=== PATIENT | male | born 1945 | race Caucasian/White ===

== ENCOUNTER 2024-01-26 19:32 | Observation (INO) ==
--- NOTE | 2024-01-26 19:49 | Emergency Department Note ---
Impression & Plan Fracture of head of humerus DC ED Provider Note HPI: History obtained from patient. The patient is a 78-year-old gentleman who presents the emergency department via EMS after a fall. Patient states that he was playing with the dog when it ran in front of him on a leash and he fell onto his right shoulder. Patient states he felt a "crack" in his right scapula when he fell. Patient states he also has some pain in the area of his right lower ribs. On arrival here to the ED the patient is alert, he is saturating well on room air. Patient denies hitting his head, denies any loss of consciousness. Patient states he is not currently on any blood thinning medications. Patient does have motor and sensory function intact distally in the right hand on arrival. Patient presents with stable blood pressure at 145/98. Heart rate is within normal limits. ROS: - Per HPI Differential Diagnosis: Shoulder fracture, shoulder dislocation, humerus fracture, scapular fracture, rib fracture, pneumothorax, hemothorax, amongst other potential pathologies. *Outpatient medications and allergy history reviewed. PE: General: Alert HEENT: Normocephalic, trachea midline Eyes: Extraocular eye movement is intact, no scleral erythema Pulmonary: Clear to auscultation bilaterally, no wheezing Cardio: Regular rate and rhythm GI: Abdomen is soft to palpation : No suprapubic tenderness MSK: Limited range of motion at the right shoulder secondary to pain, otherwise no evidence of trauma or malformation of the extremities, no edema Skin: No evidence of rash Neuro: Alert, no focal deficits, motor and sensory function is intact distally in the right hand Psychiatric: Cooperative INDEPENDENT INTERPRETATIONS: potline monitor: (As interpreted by myself): - An order was placed for continuous cardiac monitoring - Patient was noted to be in sinus rhythm with a rate of 85 Interventions provided in ED: -IV morphine, IV Zofran Medical Decision Making: IV was established and lab work obtained, patient was placed on conveyor monitor. Patient was ordered IV pain medication, patient was taken to CT imaging for CT imaging of the chest given right-sided rib pain and pain around the area of his scapula. CT imaging of the chest does not show any evidence of rib fractures, there is no pneumothorax or hemothorax, scattered pulmonary nodules are noted and also the patient is noted to have comminuted fracture of the right humeral head and humeral neck. Lab work otherwise is largely unremarkable. I discussed these findings with the patient, he states he is already aware of the pulmonary nodules and states that he has had this worked up and was told that it is not a malignant finding. In regards to the patient's fracture of the humeral head and neck, I did discuss these findings with on-call orthopedics, Dr. Hand. He states the patient does not require emergent surgery, the patient can be discharged and follow-up with a shoulder specialist and he does recommend Dr. Yu for [facility] orthopedics. I did discuss this with the patient, he requested that I call the orthopedic service at [facility] and see if they would be able to accept him for transfer for arrangement of surgery. I did comply with this request and I discussed the patient's presentation with the on-call orthopedist at [facility], Dr. Sam, he recommends the patient be discharged and does not feel that this is urgent and does not feel that the patient needs to be admitted at their facility for arrangement of surgery. He recommends pain control and outpatient follow-up with Dr. Parry as well as the patient's request. Following my discussions with both orthopedic surgeons who both recommended the patient be discharged and follow-up as an outpatient for arrangement of surgery, the patient states he is in agreement for discharge, he did request an additional dose of IV pain medication prior to discharge and this was ordered. Patient will be given a Percocet home pack to use as needed tonight for pain, he was written a prescription for Percocet and this was sent to his pharmacy in the [place] area. He was given information for [facility] orthopedics for follow-up, Dr. Yu, and he will call tomorrow to arrange for a follow-up appointment and arrangement of surgery. He states he will also attempt to contact [facility] in the [facility] to see what his options are and to see which group can see him earlier. At this time I do feel the patient is stable for outpatient management. Patient and his at the bedside are in agreement to this plan and the patient was discharged in stable condition. Consultants/Discussions held with other healthcare providers: -Orthopedics, Dr. Hand -Orthopedics at [facility], Dr. Sam Disposition discussion held by myself with: -Patient and at the bedside Discharge prescriptions: -Percocet Diagnosis: 1. Humeral head fracture, acute, comminuted, closed 2. Mechanical fall, acute 3. Pulmonary lesions on CT imaging, chronic Disposition: DC Advised outpatient follow up that was discussed with the patient: -Return to the ED immediately with any new or worsening symptoms -Follow up with a PCP in 2-3 Days -Orthopedics as discussed, patient will call tomorrow morning to schedule an appointment for follow-up Bert Medrano DO Emergency Medicine Past Med/Surg History Problem List (Updated 01/26/24 @ 21:33 by Bert Medrano DO) Fracture of head of humerus (Acute) Social History Feels Safe at Home: Yes Allergies Allergies Allergy/AdvReac Type Severity Reaction Status Date / Time No Known Allergies Allergy Verified 01/26/24 21:34 Home Meds Home Medications Medication Instructions Recorded Confirmed metoprolol succinate 25 mg 25 mg PO QAM 01/26/24 01/26/24 tablet,extended release 24 hr nifedipine 30 mg tablet,extended 30 mg PO QAM 01/26/24 01/26/24 release 24 hr zolpidem 10 mg tablet 10 mg PO HS PRN Sleep 01/26/24 01/26/24 Previous Rx's Medication Instructions Recorded oxycodone-acetaminophen 5 mg-325 1 tab PO Q6H PRN pain #20 tabs 01/26/24 mg tablet (Percocet) Results & Data (ED) Vital Signs Vital Signs - 24 hr 01/26/24 19:39 01/26/24 19:40 01/26/24 19:40 Temperature Temperature Source Pulse Rate 80 Pulse Rate from SpO2 Sensor Respiratory Rate Respiratory Effort / Characteristics Respiratory Depth Respiratory Pattern Blood Pressure 145/98 H 145/98 H Blood Pressure Mean 129 129 Pulse Oximetry Oxygen Delivery Method Sepsis Recent Fever Within 48 Hours Sepsis New/Unexplained Change in Mental Status Sepsis Action Taken by Nursing 01/26/24 19:42 01/26/24 19:42 01/26/24 20:24 Temperature 36.7 C Temperature Source Oral Pulse Rate 80 81 79 Pulse Rate from SpO2 Sensor 80 Respiratory Rate 18 16 10 L Respiratory Effort / Characteristics Non-Labored Spontaneous Respiratory Depth Normal Respiratory Pattern Regular Blood Pressure 145/98 H Blood Pressure Mean 113 Pulse Oximetry 92 96 Oxygen Delivery Method Room Air Sepsis Recent Fever Within 48 Hours No Sepsis New/Unexplained Change in Mental Status No Sepsis Action Taken by Nursing No Action Required 01/26/24 20:27 01/26/24 20:30 01/26/24 20:30 Temperature Temperature Source Pulse Rate 81 Pulse Rate from SpO2 Sensor 81 Respiratory Rate 13 Respiratory Effort / Characteristics Respiratory Depth Respiratory Pattern Blood Pressure 153/93 H 153/93 H Blood Pressure Mean 111 111 Pulse Oximetry 96 Oxygen Delivery Method Sepsis Recent Fever Within 48 Hours Sepsis New/Unexplained Change in Mental Status Sepsis Action Taken by Nursing 01/26/24 21:00 01/26/24 21:00 01/26/24 21:00 Temperature Temperature Source Pulse Rate Pulse Rate from SpO2 Sensor Respiratory Rate Respiratory Effort / Characteristics Respiratory Depth Respiratory Pattern Blood Pressure 153/89 H 153/89 H 153/89 H Blood Pressure Mean 102 102 102 Pulse Oximetry Oxygen Delivery Method Sepsis Recent Fever Within 48 Hours Sepsis New/Unexplained Change in Mental Status Sepsis Action Taken by Nursing 01/26/24 21:00 01/26/24 21:21 01/26/24 21:30 Temperature Temperature Source Pulse Rate 90 95 H Pulse Rate from SpO2 Sensor 90 95 H Respiratory Rate 14 10 L Respiratory Effort / Characteristics Respiratory Depth Respiratory Pattern Blood Pressure 143/88 H Blood Pressure Mean 96 Pulse Oximetry 98 99 Oxygen Delivery Method Sepsis Recent Fever Within 48 Hours Sepsis New/Unexplained Change in Mental Status Sepsis Action Taken by Nursing 01/26/24 21:30 01/26/24 21:30 01/26/24 22:40 Temperature Temperature Source Pulse Rate 99 H Pulse Rate from SpO2 Sensor Respiratory Rate 18 Respiratory Effort / Characteristics Respiratory Depth Respiratory Pattern Blood Pressure 143/88 H 143/88 H 158/96 H Blood Pressure Mean 96 96 Pulse Oximetry 96 Oxygen Delivery Method Room Air Sepsis Recent Fever Within 48 Hours Sepsis New/Unexplained Change in Mental Status Sepsis Action Taken by Nursing Laboratory Data 01/26/24 19:53 01/26/24 19:53 Lab Results 01/26/24 Range/Units 19:53 WBC 6.77 (4.8-10.8) K/ul RBC 5.28 (4.70-6.10) M/uL Hgb 15.9 (14.0-18.0) g/dl Hct 46.8 (42.0-52.0) % MCV 88.6 (80.0-100.0) fL MCH 30.1 (25.0-34.0) pg MCHC 34.0 (32.0-36.0) g/dL RDW Std Deviation 41.1 (36.4-46.3) fL RDW Coeff of Milagros 12.6 (11.5-14.5) % Plt Count 216 (130-400) K/uL MPV 8.9 L (9.4-12.4) fL Immature Gran % (Auto) 0.1 % Neut % (Auto) 52.3 % Lymph % (Auto) 35.9 % Mcdonald % (Auto) 8.1 % Eos % (Auto) 2.7 % Baso % (Auto) 0.9 % Neut # (Auto) 3.54 (1.40-6.50) K/uL Lymph # (Auto) 2.43 (1.20-3.40) K/uL Mcdonald # (Auto) 0.55 (0.11-0.59) K/uL Eos # (Auto) 0.18 (0.00-0.50) K/uL Baso # (Auto) 0.06 (0.00-0.20) K/uL Immature Gran # (Auto) 0.01 (0.01-0.20) K/uL Sodium 141 (136-145) mmol/L Potassium 3.4 L (3.5-5.1) mmol/L Chloride 107 (98-107) mmol/L Carbon Dioxide 26 (21-32) mmol/L Anion Gap 8 (3-11) BUN 15 (6-23) mg/dl Creatinine 1.20 (0.6-1.4) mg/dl Est Cr Clr Drug Dosing 60.0 ml/min Est GFR ( Amer) 66.3 ml/min Est GFR (Non-Af Amer) 57.2 ml/min BUN/Creatinine Ratio 12.5 (10-20) Glucose 130 H (70-99(Fasting)) mg/dl Calcium 9.2 (8.6-10.3) mg/dl Total Bilirubin 0.4 (0.2-1.0) mg/dl AST 21 (13-39) U/L ALT 22 (7-52) U/L Alkaline Phosphatase 59 (34-104) U/L Total Protein 7.0 (6.0-8.3) gm/dl Albumin 4.0 (3.4-5.0) gm/dl Globulin 3.0 (2.5-4.0) gm/dl Albumin/Globulin Ratio 1.3 (0.9-2) Administered Medications Discontinued Medications Sodium Chloride (Nss) 500 mls @ 999 mls/hr IV .Q31M SUZI Stop: 01/26/24 20:30 Last Infusion: 01/26/24 21:16 Dose: Infused Documented By: Admin: 01/26/24 20:16 Dose: 999 mls/hr Documented By: EDWARD Morphine Sulfate (Morphine Sulfate 4 Mg/Ml 1 Ml Carp\\Vial) 4 mg IV NOW STA Stop: 01/26/24 19:48 Last Admin: 01/26/24 21:21 Dose: 4 mg Documented By: EDWARD Imaging Data Radiologist's Impression: Chest CT 01/26/24 19:46 Exam(s): CT CHEST Without Contrast EXAM: CT Chest Without Intravenous Contrast CLINICAL HISTORY: Reason for exam: Trauma, R upper back pain and R rib pain. TECHNIQUE: Axial computed tomography images of the chest without intravenous contrast. CTDI is 29.52 mGy and DLP is 1056.45 mGy-cm. Automated exposure control was utilized for the study. A dose lowering technique was utilized adhering to the principles of ALARA. COMPARISON: None FINDINGS: Lungs: Nonspecific nodules in the right upper lobe measuring up to 1.2 cm and 2.1 cm nodule in the right lower lobe. Nonspecific nodule in the left upper lobe measuring 1.8 cm and in the right lower lobe measuring 1. 4 cm. Findings raise concern for neoplasm/metastases. Mild dependent atelectasis bilaterally. Pleural space: Unremarkable. No pneumothorax. No significant effusion. Heart: Unremarkable. No cardiomegaly. No significant pericardial effusion. No significant coronary artery calcifications. Bones/joints: Comminuted, displaced fractures of the right humeral head and neck. Nondisplaced fracture of the right coracoid process. Age indeterminate mild superior endplate depressions of T8, T9, T10, T11, T12. Old fracture deformity of the left clavicle. Degenerative changes of the spine. No dislocation. Soft tissues: Unremarkable. Vasculature: Unremarkable. No thoracic aortic aneurysm. Lymph nodes: Unremarkable. No enlarged lymph nodes. IMPRESSION: 1. Nonspecific nodules in the right upper lobe measuring up to 1.2 cm and 2.1 cm nodule in the right lower lobe. Nonspecific nodule in the left upper lobe measuring 1.8 cm and in the right lower lobe measuring 1. 4 cm. Findings raise concern for neoplasm/metastases. 2. Comminuted, displaced fractures of the right humeral head and neck. 3. Nondisplaced fracture of the right coracoid process. 4. Age indeterminate mild superior endplate depressions of T8, T9, T10, T11, T12. Electronically signed by: Lacey Vargas M.D. 01/26/24 20:[address] 01/26/24 20:02 Exam(s): CT RIGHT SHOULDER Without Contrast EXAM: CT Right Upper Extremity Without Intravenous Contrast, Shoulder CLINICAL HISTORY: Reason for exam: fall. TECHNIQUE: Axial computed tomography images of the right shoulder without intravenous contrast. CTDI is 29.52 mGy and DLP is 1056.45 mGy-cm. Automated exposure control was utilized for the study. A dose lowering technique was utilized adhering to the principles of ALARA. COMPARISON: None FINDINGS: Bones/joints: Comminuted, displaced fractures of the right humeral head and neck. Nondisplaced fracture of the right coracoid process. Right shoulder hemarthrosis. Mild degenerative change of the right acromio clavicular joint. No dislocation. Soft tissues: Unremarkable. IMPRESSION: 1. Comminuted, displaced fractures of the right humeral head and neck. 2. Nondisplaced fracture of the right coracoid process. Electronically signed by: Lacey Vargas M.D. 01/26/24 21:03 PM Discharge Plan Visit Data Chief Complaint: Fall Stated Complaint: GROUND LEVEL FALL, SHOULDER PAIN ED Provider: Bert Medrano Discharge Problem: Fracture of head of humerus Patient Disposition: Home - Self-Care Condition: Good Discharge Instructions Krames/Other Patient Handouts: Understanding a Humerus Fracture, ED Fracture, Upper Extremity Activity Restrictions/Additional Instructions: Please follow-up with orthopedics in the office as discussed, please call tomorrow to schedule your follow-up appointment eventual surgery for shoulder replacement. Please utilize Percocet as needed for pain, please follow dosage instructions as indicated on prescription. Please sleep in a recliner chair for comfort and stability, please remain in arm sling. Please return to the ER if you have any new or acutely worsening symptoms. Interventions: ED Discharge Assessment Last Done: 01/26/24 22:40 Forms Stand Alone Forms: My [facility] Rowena Zafin, Important Visit Information Prescriptions Prescriptions: New oxycodone-acetaminophen [Percocet] 5-325 mg tablet 1 tab PO Q6H PRN (Reason: pain) Qty: 20 0RF No Action nifedipine 30 mg tablet extended release 24hr 30 mg PO QAM metoprolol succinate 25 mg tablet extended release 24 hr 25 mg PO QAM zolpidem 10 mg tablet 10 mg PO HS PRN (Reason: Sleep) Referrals Referrals: Geronimo Yu DO [Physician] - PCP,NO [Primary Care Provider] - Discharge Problem: Fracture of head of humerus Qualifiers: Encounter type: initial encounter Fracture type: closed Laterality: right Q ualified Code(s): S42.291A - Other displaced fracture of upper end of right humerus, initial encounter for closed fracture
[2024-01-26 20:14] LABS: Basophils # (auto) 0.06 K/uL (0.00-0.20); Basophils % (auto) 0.9 %; Eosinophils # (auto) 0.18 K/uL (0.00-0.50); Eosinophils % (auto) 2.7 %; Hematocrit (blood only) 46.8 % (42.0-52.0); Hemoglobin 15.9 g/dl (14.0-18.0); Immature Granulocytes # (auto) 0.01 K/uL (0.01-0.20); Immature Granulocytes % (auto) 0.1 %; Lymphocytes # (auto) 2.43 K/uL (1.20-3.40); Lymphocytes % (auto) 35.9 %; Mean Corpuscular Hemoglobin 30.1 pg (25.0-34.0); Mean Corpuscular Volume 88.6 fL (80.0-100.0); Mean Platelet Volume 8.9 fL (9.4-12.4); Monocytes # (auto) 0.55 K/uL (0.11-0.59); Monocytes % (auto) 8.1 %; Neutrophils # (auto) 3.54 K/uL (1.40-6.50); Neutrophils % (auto) 52.3 %; Platelet Count 216 K/uL (130-400); RDW Coefficient of Variation 12.6 % (11.5-14.5); RDW Standard Deviation 41.1 fL (36.4-46.3); Red Blood Count 5.28 M/uL (4.70-6.10); White Blood Count 6.77 K/ul (4.8-10.8)
[2024-01-26] MEDS: SODIUM CHLORIDE 0.9% 500 ML IV SCH (20:16)
[2024-01-26 20:22] LABS: Albumin Globulin Ratio 1.3 (0.9-2); BUN Creatinine Ratio 12.5 (10-20); Bilirubin,Total 0.4 mg/dl (0.2-1.0); Calcium 9.2 mg/dl (8.6-10.3); Est GFR (African American) 66.3 ml/min; Est GFR (Non-African American) 57.2 ml/min; Potassium 3.4 mmol/L (3.5-5.1)
--- NOTE | 2024-01-26 20:44 | CT Scan Report ---
Exam(s): CT CHEST Without Contrast EXAM: CT Chest Without Intravenous Contrast CLINICAL HISTORY: Reason for exam: Trauma, R upper back pain and R rib pain. TECHNIQUE: Axial computed tomography images of the chest without intravenous contrast. CTDI is 29.52 mGy and DLP is 1056.45 mGy-cm. Automated exposure control was utilized for the study. A dose lowering technique was utilized adhering to the principles of ALARA. COMPARISON: None FINDINGS: Lungs: Nonspecific nodules in the right upper lobe measuring up to 1.2 cm and 2.1 cm nodule in the right lower lobe. Nonspecific nodule in the left upper lobe measuring 1.8 cm and in the right lower lobe measuring 1. 4 cm. Findings raise concern for neoplasm/metastases. Mild dependent atelectasis bilaterally. Pleural space: Unremarkable. No pneumothorax. No significant effusion. Heart: Unremarkable. No cardiomegaly. No significant pericardial effusion. No significant coronary artery calcifications. Bones/joints: Comminuted, displaced fractures of the right humeral head and neck. Nondisplaced fracture of the right coracoid process. Age indeterminate mild superior endplate depressions of T8, T9, T10, T11, T12. Old fracture deformity of the left clavicle. Degenerative changes of the spine. No dislocation. Soft tissues: Unremarkable. Vasculature: Unremarkable. No thoracic aortic aneurysm. Lymph nodes: Unremarkable. No enlarged lymph nodes. IMPRESSION: 1. Nonspecific nodules in the right upper lobe measuring up to 1.2 cm and 2.1 cm nodule in the right lower lobe. Nonspecific nodule in the left upper lobe measuring 1.8 cm and in the right lower lobe measuring 1. 4 cm. Findings raise concern for neoplasm/metastases. 2. Comminuted, displaced fractures of the right humeral head and neck. 3. Nondisplaced fracture of the right coracoid process. 4. Age indeterminate mild superior endplate depressions of T8, T9, T10, T11, T12. Electronically signed by: Lacey Vargas M.D. 01/26/24 20:43 PM
--- NOTE | 2024-01-26 21:04 | CT Scan Report ---
Exam(s): CT RIGHT SHOULDER Without Contrast EXAM: CT Right Upper Extremity Without Intravenous Contrast, Shoulder CLINICAL HISTORY: Reason for exam: fall. TECHNIQUE: Axial computed tomography images of the right shoulder without intravenous contrast. CTDI is 29.52 mGy and DLP is 1056.45 mGy-cm. Automated exposure control was utilized for the study. A dose lowering technique was utilized adhering to the principles of ALARA. COMPARISON: None FINDINGS: Bones/joints: Comminuted, displaced fractures of the right humeral head and neck. Nondisplaced fracture of the right coracoid process. Right shoulder hemarthrosis. Mild degenerative change of the right acromio clavicular joint. No dislocation. Soft tissues: Unremarkable. IMPRESSION: 1. Comminuted, displaced fractures of the right humeral head and neck. 2. Nondisplaced fracture of the right coracoid process. Electronically signed by: Lacey Vargas M.D. 01/26/24 21:03 PM
[2024-01-26] MEDS: MoRPHine SULFATE 4 MG/ML 1 ML CARP\\VIAL IV STA ×2 (21:21→22:48)
[2024-01-26] MEDS: PERCOCET 5/325MG HOMEPACK PO ONE (22:49)
--- NOTE | 2024-01-27 00:39 | History & Physical Report ---
Date of Service January 27, 2024 Assessment & Plan (1) Fracture of head of humerus: Plan: 78yo male with ground level fall resulting in right humeral head and neck fracture and fracture of the right coracoid process. Patient still in significant pain 02/11. Hand is well perfused, NV intact. Case has been discussed between ER team and two Orthopedic Surgeons. Non- operative management at this time. Patient became unsteady on his feet and dizzy following a second dose of Morphine and is requesting admission for pain control. -Observation to medical -Maintain RUE immobilized in arm sling -Ice to right shoulder as tolerated -Tylenol 1gm po TID -Percocet 5mg po q 4 hours as needed -Zofran PRN nausea -Miralax PRN constipation -Will hold Ambessie malhotra -Patient is to call Dr. Yu or Dr. Parry in the morning for a followup appointment (2) Hypertension: Plan: Blood pressure mildly elevated -Continue home medications Metoprolol and Nifedipine -Continue to monitor Plan F/E/N - LR at 100mL/hr x 1L, electrolytes WNL - no need to repeat lab studies in the AM. Regular diet as tolerated Ppx - low risk for DVT Code - Full per discussion with patient Dispo -Observation to medical History of Present Illness Chief Complaint: right humerus fracture Primary Care Provider: NO PCP Madhu Winters is a 78yo male with history of HTN presenting after a ground level fall resulting in an acute, comminuted, displaced fracture of the right humeral head and neck as well as nondisplaced fracture of the right coracoid process. Patient was walking his dog this afternoon when he became entangled in the leash and lost his balance. He fell from standing position and landed on his right shoulder in the yard. He denies any trauma to the head or neck. Denies loss of consciousness, chest pain, palpitations or dizziness. Patient seen in the ER. Discussion with Orthopedic Surgery from [facility] Dr. Hand as well as Dr. Sam from [place]. Patient does not require urgent intervention. Recommendations made to immobilize the RUE in a sling and discharge home with pain control. He is to followup with Orthopedic Surgery - Dr. Yu from [facility] [facility] or Dr. Parry from [facility] in [place]. Patient was in agreement with discharge home. He requested a dose of Morphine prior to discharge. After receiving the morphine he became somewhat dizzy and was unsteady on his feet. His is at bedside and reports that she is not comfortable taking him home because she doesn't think he can get up the steps to their apartment. They are requesting overnight admission for pain control. ER Course: Morphine 4mg IV x 2 Allergies Allergy/AdvReac Type Severity Reaction Status Date / Time No Known Allergies Allergy Verified 01/26/24 21:34 Home Medications Medication Instructions Recorded Confirmed Type metoprolol succinate 25 mg 25 mg PO QAM 01/26/24 01/26/24 History tablet,extended release 24 hr nifedipine 30 mg tablet,extended 30 mg PO QAM 01/26/24 01/26/24 History release 24 hr oxycodone-acetaminophen 5 mg-325 1 tab PO Q6H PRN pain #20 tabs 01/26/24 Rx mg tablet (Percocet) zolpidem 10 mg tablet 10 mg PO HS PRN Sleep 01/26/24 01/26/24 History Past Med/Surg History Problem List (Updated 01/27/24 @ 00:30 by Martha Hand DO) Fracture of head of humerus (Acute) Medical History (Updated 01/27/24 @ 00:30 by Martha Hand DO) Hypertension Surgical History (Updated 01/27/24 @ 00:30 by Martha Hand DO) History of right hemicolectomy Family History (Updated 01/27/24 @ 00:30 by Martha Hand DO) Other Family history non-contributory Social History (Updated 01/27/24 @ 00:31 by Martha Hand DO) Smoking Status: Former smoker Hx Alcohol Use: No Hx Substance Use: No Feels Safe at Home: Yes Review of Systems Review of Systems: All systems reviewed & are unremarkable except as noted in HPI & below Physical Exam Physical Exam: General: patient resting comfortably, NAD, non-toxic in appearance, AA&O x 4 Skin: warm, dry, intact, no rashes or lesions HEENT: NC/AT, PERRL, EOMI, anicteric sclera, conjunctiva without injection, external ear normal to inspection and nontender, nares patent, moist mucus membranes, dentition intact, no oropharyngeal lesions, neck supple, trachea midline, no LAD, no thyromegaly, no JVD Heart: +S1/S2, regular, no m/r/g Lungs: equal air entry bilaterally, no rales/rhonchi/wheezes Abd: +BS, soft, NT/ND, no masses/organomegaly/ascites Ext: warm, 2+ pulses in UE/LE bilaterally, no clubbing/cyanosis or edema, RUE in sling Neuro: nonfocal, patient AA&O x 4, speech intact, no facial droop, moving all extremities on command with equal strength 5/5 Results & Data Results & Data Vital Signs (Past 12 Hours) Vital Signs Temp Pulse Resp BP Pulse Ox O2 Del Method 01/26/24 22:40 99 H 18 158/96 H 96 Room Air 01/26/24 21:30 143/88 H 01/26/24 21:30 143/88 H 01/26/24 21:30 143/88 H 01/26/24 21:21 95 H 10 L 99 01/26/24 21:00 90 14 98 01/26/24 21:00 153/89 H 01/26/24 21:00 153/89 H 01/26/24 21:00 153/89 H 01/26/24 20:30 153/93 H 01/26/24 20:30 153/93 H 01/26/24 20:27 81 13 96 01/26/24 20:24 79 10 L 96 01/26/24 19:42 81 16 01/26/24 19:42 36.7 C 80 18 145/98 H 92 Room Air 01/26/24 19:40 145/98 H 01/26/24 19:40 145/98 H 01/26/24 19:39 80 Laboratory Results Laboratory Results WBC 6.77 K/ul (4.8-10.8) 01/26/24 19:53 RBC 5.28 M/uL (4.70-6.10) 01/26/24 19:53 Hgb 15.9 g/dl (14.0-18.0) 01/26/24 19:53 Hct 46.8 % (42.0-52.0) 01/26/24 19:53 MCV 88.6 fL (80.0-100.0) 01/26/24 19:53 MCH 30.1 pg (25.0-34.0) 01/26/24 19:53 MCHC 34.0 g/dL (32.0-36.0) 01/26/24 19:53 RDW Std Deviation 41.1 fL (36.4-46.3) 01/26/24 19:53 RDW Coeff of Milagros 12.6 % (11.5-14.5) 01/26/24 19:53 Plt Count 216 K/uL (130-400) 01/26/24 19:53 MPV 8.9 fL (9.4-12.4) L 01/26/24 19:53 Immature Gran % (Auto) 0.1 % 01/26/24 19:53 Neut % (Auto) 52.3 % 01/26/24 19:53 Lymph % (Auto) 35.9 % 01/26/24 19:53 [place] % (Auto) 8.1 % 01/26/24 19:53 Eos % (Auto) 2.7 % 01/26/24 19:53 Baso % (Auto) 0.9 % 01/26/24 19:53 Neut # (Auto) 3.54 K/uL (1.40-6.50) 01/26/24 19:53 Lymph # (Auto) 2.43 K/uL (1.20-3.40) 01/26/24 19:53 [place] # (Auto) 0.55 K/uL (0.11-0.59) 01/26/24 19:53 Eos # (Auto) 0.18 K/uL (0.00-0.50) 01/26/24 19:53 Baso # (Auto) 0.06 K/uL (0.00-0.20) 01/26/24 19:53 Immature Gran # (Auto) 0.01 K/uL (0.01-0.20) 01/26/24 19:53 Sodium 141 mmol/L (136-145) 01/26/24 19:53 Potassium 3.4 mmol/L (3.5-5.1) L 01/26/24 19:53 Chloride 107 mmol/L (98-107) 01/26/24 19:53 Carbon Dioxide 26 mmol/L (21-32) 01/26/24 19:53 Anion Gap 8 (3-11) 01/26/24 19:53 BUN 15 mg/dl (6-23) 01/26/24 19:53 Creatinine 1.20 mg/dl (0.6-1.4) 01/26/24 19:53 Est Cr Clr Drug Dosing 60.0 ml/min 01/26/24 19:53 Est GFR ( Amer) 66.3 ml/min 01/26/24 19:53 Est GFR (Non-Af Amer) 57.2 ml/min 01/26/24 19:53 BUN/Creatinine Ratio 12.5 (10-20) 01/26/24 19:53 Glucose 130 mg/dl (70-99(Fasting)) H 01/26/24 19:53 Calcium 9.2 mg/dl (8.6-10.3) 01/26/24 19:53 Total Bilirubin 0.4 mg/dl (0.2-1.0) 01/26/24 19:53 AST 21 U/L (13-39) 01/26/24 19:53 ALT 22 U/L (7-52) 01/26/24 19:53 Alkaline Phosphatase 59 U/L (34-104) 01/26/24 19:53 Total Protein 7.0 gm/dl (6.0-8.3) 01/26/24 19:53 Albumin 4.0 gm/dl (3.4-5.0) 01/26/24 19:53 Globulin 3.0 gm/dl (2.5-4.0) 01/26/24 19:53 Albumin/Globulin Ratio 1.3 (0.9-2) 01/26/24 19:[address] 01/26/24 19:46 Exam(s): CT CHEST Without Contrast EXAM: CT Chest Without Intravenous Contrast CLINICAL HISTORY: Reason for exam: Trauma, R upper back pain and R rib pain. TECHNIQUE: Axial computed tomography images of the chest without intravenous contrast. CTDI is 29.52 mGy and DLP is 1056.45 mGy-cm. Automated exposure control was utilized for the study. A dose lowering technique was utilized adhering to the principles of ALARA. COMPARISON: None FINDINGS: Lungs: Nonspecific nodules in the right upper lobe measuring up to 1.2 cm and 2.1 cm nodule in the right lower lobe. Nonspecific nodule in the left upper lobe measuring 1.8 cm and in the right lower lobe measuring 1. 4 cm. Findings raise concern for neoplasm/metastases. Mild dependent atelectasis bilaterally. Pleural space: Unremarkable. No pneumothorax. No significant effusion. Heart: Unremarkable. No cardiomegaly. No significant pericardial effusion. No significant coronary artery calcifications. Bones/joints: Comminuted, displaced fractures of the right humeral head and neck. Nondisplaced fracture of the right coracoid process. Age indeterminate mild superior endplate depressions of T8, T9, T10, T11, T12. Old fracture deformity of the left clavicle. Degenerative changes of the spine. No dislocation. Soft tissues: Unremarkable. Vasculature: Unremarkable. No thoracic aortic aneurysm. Lymph nodes: Unremarkable. No enlarged lymph nodes. IMPRESSION: 1. Nonspecific nodules in the right upper lobe measuring up to 1.2 cm and 2.1 cm nodule in the right lower lobe. Nonspecific nodule in the left upper lobe measuring 1.8 cm and in the right lower lobe measuring 1. 4 cm. Findings raise concern for neoplasm/metastases. 2. Comminuted, displaced fractures of the right humeral head and neck. 3. Nondisplaced fracture of the right coracoid process. 4. Age indeterminate mild superior endplate depressions of T8, T9, T10, T11, T12. Electronically signed by: Lacey Vargas M.D. 01/26/24 20:[address] 01/26/24 20:02 Exam(s): CT RIGHT SHOULDER Without Contrast EXAM: CT Right Upper Extremity Without Intravenous Contrast, Shoulder CLINICAL HISTORY: Reason for exam: fall. TECHNIQUE: Axial computed tomography images of the right shoulder without intravenous contrast. CTDI is 29.52 mGy and DLP is 1056.45 mGy-cm. Automated exposure control was utilized for the study. A dose lowering technique was utilized adhering to the principles of ALARA. COMPARISON: None FINDINGS: Bones/joints: Comminuted, displaced fractures of the right humeral head and neck. Nondisplaced fracture of the right coracoid process. Right shoulder hemarthrosis. Mild degenerative change of the right acromio clavicular joint. No dislocation. Soft tissues: Unremarkable. IMPRESSION: 1. Comminuted, displaced fractures of the right humeral head and neck. 2. Nondisplaced fracture of the right coracoid process. Electronically signed by: Lacey Vargas M.D. 01/26/24 21:03 PM PG Care Time/CCT Total # of Minutes Spent Total Time Spent with Patient: Total time spent is greater than 50% in coordination of care (as documented) at patient's floor/unit and/or counseling patient: Coding Level of Care Code 82805 INT INP/OBS CARE 2/55MIN Diagnoses Fracture of head of humerus S42.291A Encounter type: initial encounter Fracture type: closed Laterality: right Hypertension I10 (1) Fracture of head of humerus Encounter type: initial encounter Fracture type: closed Laterality: right Qualified Code(s): S42.291A - Other displaced fracture of upper end of right humerus, initial encounter for closed fracture
[2024-01-27] MEDS: ONDANSETRON INJ 2 MG/ML 2 ML VIAL IV STA (00:41)
[2024-01-27] MEDS ORDERED: POLYETHYLENE (MIRALAX) 17 GM PACK PO PRN (02:21)
[2024-01-27] MEDS ORDERED: ONDANSETRON INJ 2 MG/ML 2 ML VIAL IV PRN (02:21)
[2024-01-27] MEDS: LACTATED RINGER'S 1,000 ML IV SCH (02:38)
[2024-01-27] MEDS: ACETAMINOPHEN 500 MG TAB PO SCH (05:38)
[2024-01-27] MEDS: oxyCODONE HCL IR 5 MG TAB (IMMEDIATE RELEASE) PO PRN (08:03)
[2024-01-27] MEDS: NIFEdipine EXTENDED REL 30 MG TABCR PO SCH (08:14)
[2024-01-27] MEDS: METOPROLOL SUCC 25MG EXT REL TAB PO SCH (08:16)
--- NOTE | 2024-01-27 08:52 | Electrocardiogram Report ---
Test Reason : Blood Pressure : / mmHG Vent. Rate : 077 BPM Atrial Rate : 077 BPM P-R Int : 158 ms QRS Dur : 134 ms QT Int : 400 ms P-R-T Axes : 000 -20 110 degrees QTc Int : 452 ms Normal sinus rhythm Right bundle branch block Nondiagnostic lateral Q waves Abnormal ECG No previous ECGs available Confirmed by Eugenio Glover ([id number]) on 01/27/2024 8:52:13 AM Referred By: REFERRED SELF Confirmed By:Eugenio Glover
--- NOTE | 2024-01-27 12:03 | Discharge Summary ---
Date of Service January 27, 2024 Admission HPI Per Admitting Provider Madhu Winters is a 78yo male with history of HTN presenting after a ground level fall resulting in an acute, comminuted, displaced fracture of the right humeral head and neck as well as nondisplaced fracture of the right coracoid process. Patient was walking his dog this afternoon when he became entangled in the leash and lost his balance. He fell from standing position and landed on his right shoulder in the yard. He denies any trauma to the head or neck. Denies loss of consciousness, chest pain, palpitations or dizziness. Patient seen in the ER. Discussion with Orthopedic Surgery from [facility] Dr. Hand as well as Dr. Sam from [place]. Patient does not require urgent intervention. Recommendations made to immobilize the RUE in a sling and discharge home with pain control. He is to followup with Orthopedic Surgery - Dr. Yu from [place] [facility] or Dr. Parry from [facility] in [place]. Patient was in agreement with discharge home. He requested a dose of Morphine prior to discharge. After receiving the morphine he became somewhat dizzy and was unsteady on his feet. His is at bedside and reports that she is not comfortable taking him home because she doesn't think he can get up the steps to their apartment. They are requesting overnight admission for pain control. ER Course: Morphine 4mg IV x 2 Principal Diagnosis Mechanical fall with right proximal humerus fracture and right coracoid fracture, inadvertent finding of lung nodules on CT scan Discharge Exam General-alert and oriented x3, no fever, no chills HEENT-head atraumatic and normocephalic, pupils equal and reactive to light, extraocular muscles intact Neck-no lymphadenopathy or thyromegaly, trachea midline Chest-clear to auscultation. No rales, wheezing or rhonchi Cardiac-regular rate and rhythm, normal S1 and S2 Abdomen-normal bowel sounds, no hepatosplenomegaly Extremities-right arm is in a sling. Tenderness to palpation about the right shoulder and proximal right humerus with some swelling noted in this area Neuro-cranial nerves II through XII intact, motor and sensory function within normal limits, strength symmetrical, no focal deficits Psych-normal affect, normal mood Discharge Data Allergies Allergy/AdvReac Type Severity Reaction Status Date / Time No Known Allergies Allergy Verified 01/26/24 21:34 Consultations 01/27/24 00:52 ED Decision to Admit Stat Ordered Studies 01/26/24 19:46 CT chest diagnostic wo con Stat 01/26/24 20:02 CT shoulder RT wo con Stat Hospital Course (1) Fracture of head of humerus: Continue right arm in sling. Appreciate orthopedic consultation and recommendations. Nonoperative. Pain control measures. Outpatient orthopedic follow-up (2) Hypertension: Stable. Continue metoprolol and nifedipine (3) Pulmonary nodules: Incidental finding on CT scan. This will need further outpatient evaluation to rule out metastatic disease (4) Right bundle branch block: Seen on admission EKG. Probably chronic. No intervention necessary at this time Plan Home today, January 26. Outpatient orthopedic follow-up. PCP will need to further evaluate presence of lung nodules to rule out metastatic disease. Total Time Total Time Spent Total Time Spent (In Minutes): 45 minutes Discharge Plan Discharge Items Patient Disposition: Home - Self-Care Reason For Visit: RIGHT SHOULDER FRACTURE Discharge Diagnosis: Mechanical fall, proximal right humerus fracture, right coracoid fracture, incidental finding of pulmonary nodules on CT scan Condition on Discharge: Good Activity: Per Instructions section Activity Comment: Continue right arm sling at all times Non-emergency contact: Primary Care Provider Call non-emergency contact if: you have any medication questions and your symptoms worsen Follow-up/Referrals: PCPLATRELL [Primary Care Provider] - Diet: Regular and Heart Healthy Addtl Attending Provider Instructions: Follow-up with orthopedic surgery for right arm fracture. See primary care provider soon as possible for further evaluation of lung nodule seen on chest CT scan Pending Studies at Discharge: No Stand-Alone Forms: [employer], Smoking Cessation Medications and DC Order Prescriptions: New oxycodone-acetaminophen [Percocet] 5-325 mg tablet 1 tab PO Q6H PRN (Reason: pain) Qty: 20 0RF Continued nifedipine 30 mg tablet extended release 24hr 30 mg PO QAM metoprolol succinate 25 mg tablet extended release 24 hr 25 mg PO QAM zolpidem 10 mg tablet 10 mg PO HS PRN (Reason: Sleep) Discharge Orders: Discharge Order (Routine); Ordered 01/27/24 Ordered By: Theodore Oneal Admission Data Admit Date/Time: 01/27/24 00:22 Attending Provider: Theodore Oneal Admit Provider: Martha Hand Primary Care Provider: PCP,NO Other Providers: Martha Hand Coding Level of Care Code 17393 INP/OBS DISCH >30 MIN Diagnoses Fracture of head of humerus S42.291A Encounter type: initial encounter Fracture type: closed Laterality: right Hypertension I10 Pulmonary nodules R91.8 Right bundle branch block I45.10
== END 2024-01-27 13:14 | disposition home or self-care (01) ==
LOC: SUATTDRO → EDBD → ED 19:32 → 3E 19:32 → SUATTDRO 01-27 00:22 → 3E 01-27 01:44
DX: Z87.891 Personal history of nicotine dependence; Z79.899 Other long term (current) drug therapy; S42.291A Other displaced fracture of upper end of right humerus, initial encounter for closed fracture; I10 Essential (primary) hypertension; R91.8 Other nonspecific abnormal finding of lung field; W18.39XA Other fall on same level, initial encounter; I45.10 Unspecified right bundle-branch block; S42.134A Nondisplaced fracture of coracoid process, right shoulder, initial encounter for closed fracture